=== PATIENT | male | born 1980 | race African-American/Black ===

== ENCOUNTER 2017-02-19 06:35 | Emergency (ER) | payer OTHER ==
[~2017-02-19] VITALS: Ht 175.3 cm; Wt 88.9 kg
[~2017-02-19 06:35] MED LIST: RANI-287 PO; SIMV40TA1 PO
[2017-02-19 06:54] VITALS: BP 143/86
--- NOTE | 2017-02-19 07:03 | NUR ---
AMUBLATED TO ER BED 6
[2017-02-19] MEDS ORDERED: METHOCARBAMOL 500 MG TAB PO SCH (07:20)
[2017-02-19] MEDS ORDERED: KETOROLAC 60 MG/2 ML VIAL IM ONE (07:20)
--- NOTE | 2017-02-19 07:35 | NUR ---
ENCOURAGED PT TO APPLY HEAT PACKS AT HOME FOR ABOUT 5-15MINS AT A TIME AND VERY FREQUENTLY
--- NOTE | 2017-02-19 08:24 | NUR ---
ADMITS PAIN HAS DECREASED TO TOLERABLE LEVEL AT THIS TIME. REMAINS ON CELL PHONE
[2017-02-19 08:53] VITALS: BP 132/80
--- NOTE | 2017-02-19 08:54 | NUR ---
Patient discharged with v/s stable. Written and verbal after care instructions given and explained. Patient alert, oriented and verbalized understanding of instructions. Ambulatory with steady gait. All questions addressed prior to discharge. ID band removed. Patient advised to follow up with PMD. Rx of MOTRIN AND ROBAXIN given. Patient educated on indication of medication including possible reaction and side effects. Opportunity to ask questions provided and answered.
== END 2017-02-19 08:54 | disposition home or self-care (01) ==
LOC: MED 06:35
DX: M62.838 Other muscle spasm (principal); M54.2 Cervicalgia; E78.5 Hyperlipidemia, unspecified; Z79.899 Other long term (current) drug therapy
CPT/HCPCS: 96372; 99283; J1885

== ENCOUNTER 2019-07-31 11:22 | Emergency (ER) | payer OTHER ==
[~2019-07-31] VITALS: Ht 175.3 cm; Wt 90.7 kg
[2019-07-31 11:25] VITALS: BP 146/90
--- NOTE | 2019-07-31 11:29 | NUR ---
PT TO [facility]
--- NOTE | 2019-07-31 12:16 | NUR ---
PATIENT AMBULATED WITH ASSISTANCE TO BED 8.
--- NOTE | 2019-07-31 12:25 | NUR ---
39 Y/O M C/O LOWER BACK PAIN / DOES NOT RADIATE X 1 DAY. PT DENIES INJURY TO THE AREA. PT ABLE TO MOVE LOWER EXTREMITIES W/O DIFFICULTY, CAP REFIL LESS THAN 3 BILATERAL TOES. PT TOOK MOTRIN FOR THE PAIN AT HOME, HAS NOT RELIEVED SYMPTOMS. COTY
--- NOTE | 2019-07-31 13:19 | NUR ---
[facility] EXAMINING PATIENT AT BEDSIDE.
[2019-07-31] MEDS ORDERED: KETOROLAC 30 MG/ML VIAL IM ONE (13:25)
[2019-07-31 13:48] VITALS: BP 135/87
--- NOTE | 2019-07-31 13:48 | NUR ---
Patient discharged with v/s stable. Written and verbal after care instructions given and explained REGARDING BACK PAIN. Patient alert, oriented and verbalized understanding of instructions. Ambulatory with steady gait. All questions addressed prior to discharge. ID band removed. Patient advised to follow up with PMD. Rx of NAPROXEN AND NORCO given. Patient educated on indication of medication including possible reaction and side effects. Opportunity to ask questions provided and answered. PT INSTRUCTED TO NOT DRIVE AFTER TAKING NORCO IT MAY CAUSE DROWSINESS
--- NOTE | 2019-07-31 13:48 | NUR ---
PT REPORTS SOME PAIN RELIEF AFTER TORADOL IM, PAIN 5/10, NADR
== END 2019-07-31 13:48 | disposition home or self-care (01) ==
LOC: MED 11:22
DX: M54.5 Low back pain (principal); K21.9 Gastro-esophageal reflux disease without esophagitis; E78.5 Hyperlipidemia, unspecified; F17.210 Nicotine dependence, cigarettes, uncomplicated; Z79.899 Other long term (current) drug therapy
CPT/HCPCS: 72100; 81002; 96372; 99283; J1885